=== PATIENT | female | born 1960 | race Caucasian/White ===

== ENCOUNTER 2016-08-06 06:10 | Day surgery (SDC) | payer OTHER ==
[~2016-08-06] VITALS: Ht 154.9 cm; Wt 53.4 kg
[2016-08-06 06:47] VITALS: Ht 154.9 cm; Wt 53.4 kg
[2016-08-06] MEDS ORDERED: QUIN10TA19 PO (06:54)
[2016-08-06] MEDS ORDERED: HYDR12.58 PO (06:54)
[2016-08-06 07:13] VITALS: BP 101/65; PULSE 72; RESP 13
[2016-08-06] MEDS ORDERED: MIDAZOLAM 1 MG/ML 2 ML INJ ONE ×2 (08:46)
[2016-08-06] MEDS ORDERED: FENTAnyl 50 MCG/ML VIAL ONE (08:46)
[2016-08-06 08:50] VITALS: BP 98/63; PULSE 74; RESP 19
--- NOTE | 2016-08-06 13:53 | GILP ---
DATE OF PROCEDURE: NAME OF PROCEDURES: Colonoscopy and biopsy. SURGEON: Sada Brown MD PREOPERATIVE DIAGNOSIS: Screening colonoscopy. POSTOPERATIVE DIAGNOSES 1. Colonoscopy all the way to the cecum. 2. Solid stool in the cecum and right colon making the exam somewhat suboptimal. 3. Diverticulosis of the colon. 4. Small sigmoid colon polyp was removed using the biopsy forceps. 5. Internal hemorrhoids. INDICATION FOR THE PROCEDURE: Ms. Lois Guevara is a 56-year-old female patient who was scheduled for screening colonoscopy. The procedure and possible complications were well explained to the patient, she understood and cons ented to the procedure. DESCRIPTION OF PROCEDURE: Under the influence of fentanyl and Versed, the colonoscope was carefully introduced in the rectum, and under direct vision, it was advanced all the way to the cecum. FINDINGS: The patient had somewhat solid stool in the cecum as well as the right colon making the e xam somewhat suboptimal. The patient was noted to have diverticulosis of the colon. She had a smal l sigmoid colon polyp and it was removed using the biopsy forceps. She had internal hemorrhoids. She tolerated the procedure very well and there was no complication from the procedure. At the end of the procedure, she was awake with stable vital signs and she was discharged home to the care of h er family. IMPRESSION: Please see postoperative diagnosis. PLAN: Await histopathology report. Because of the suboptimal nature of the exam, because of the poor prep, the patient will need next s creening colonoscopy in 3 years. Dictated By: SADA BRINK/[place] Conf#: [id number] DID#: [id number]
== END 2016-08-06 10:58 | disposition home or self-care (01) ==
LOC: GIL 06:10
PROVIDERS: ATTEND Internal Medicine Gastroenterology
DX: Z12.11 Encounter for screening for malignant neoplasm of colon (principal); D12.5 Benign neoplasm of sigmoid colon; K64.8 Other hemorrhoids; I10 Essential (primary) hypertension
CPT/HCPCS: 45380; 88305; J2250; J3010; Z7610